=== PATIENT | female | born 1985 | race Two or more races ===

== ENCOUNTER 2022-06-08 11:10 | Emergency (ER) | payer MEDICAID ==
[~2022-06-08] VITALS: Ht 170.2 cm; Wt 72.6 kg
[2022-06-08 11:18] VITALS: BP 134/83
[2022-06-08] MEDS ORDERED: AMOX-430 PO (12:09)
--- NOTE | 2022-06-08 12:14 | NUR ---
Patient discharged to home in stable condition. Written and verbal after care instructions given. Patient verbalizes understanding of instruction.
== END 2022-06-08 12:14 | disposition home or self-care (01) ==
LOC: ER 11:14
DX: L03.213 Periorbital cellulitis (principal)